=== PATIENT | male | born 1960 | race Caucasian/White ===

== ENCOUNTER 2016-11-29 21:13 | Emergency (ER) | payer BC ==
[2016-11-29] MEDS ORDERED: OXYMETAZOLINE NASAL SPRAY NAS STA (21:28)
[2016-11-29] MEDS ORDERED: IBUPROFEN 400 MG TABLET PO STA (21:28)
[2016-11-29] MEDS ORDERED: MORPHINE 2 MG/ML SYRINGE IVP STA (21:45)
[2016-11-29] MEDS ORDERED: ONDANSETRON 4 MG/2 ML VIAL IVP STA (21:45)
[2016-11-29] MEDS ORDERED: ONDANSETRON 4 MG/2 ML VIAL ONE (22:00)
[2016-11-29] MEDS ORDERED: MORPHINE 10 MG/ML VIAL ONE (22:00)
[2016-11-29] MEDS ORDERED: MORPHINE 2 MG/ML SYRINGE ONE (22:02)
[2016-11-29] MEDS ORDERED: SODIUM CHLORIDE 0.9% 1,000 ML IV ONE (22:23)
[2016-11-29] MEDS ORDERED: PIPERACILLIN/TAZOBACTAM 3.375 GM in SODIUM CHLORIDE 0.9% MINIBAG 100 ML IV STA (23:57)
[2016-11-30] MEDS ORDERED: SODIUM POLYSTYRENE SULFONATE 15 GM/60 ML BOTTLE PO STA (00:17)
[2016-11-30] MEDS ORDERED: SODIUM POLYSTYRENE SULFONATE 15 GM/60 ML BOTTLE ONE (00:23)
== END 2016-11-30 02:56 | disposition home or self-care (01) ==
DX: K80.20 Calculus of gallbladder without cholecystitis without obstruction (principal); E87.5 Hyperkalemia; N28.9 Disorder of kidney and ureter, unspecified; K76.0 Fatty (change of) liver, not elsewhere classified; K40.90 Unilateral inguinal hernia, without obstruction or gangrene, not specified as recurrent; R03.0 Elevated blood-pressure reading, without diagnosis of hypertension; E11.65 Type 2 diabetes mellitus with hyperglycemia; Z79.4 Long term (current) use of insulin; Z95.1 Presence of aortocoronary bypass graft; Z95.0 Presence of cardiac pacemaker; Z79.02 Long term (current) use of antithrombotics/antiplatelets
CPT/HCPCS: 36415; 74176; 76705; 80053; 83690; 84484; 85025; 93005; 93010; 96361; 96365; 96375; 99284; A9270

== ENCOUNTER 2021-04-26 20:10 | Outpatient (CLI) | payer OTHER | END 2021-04-26 20:11 | disposition short-term general hospital (02) | LOC: EMS 20:10 | DX: I46.9 Cardiac arrest, cause unspecified (principal) | CPT/HCPCS: A0425; A0433 ==